=== PATIENT | female | born 1995 | race Hispanic/Latino ===

== ENCOUNTER 2017-03-28 17:27 | Emergency (ER) | payer MEDICAID, OTHER ==
[~2017-03-28 17:27] MED LIST: PROP20TA7 PO
== END 2017-03-28 17:54 | disposition home or self-care (01) ==
LOC: EDH 17:27
DX: R50.9 Fever, unspecified (principal); F50.89 Other specified eating disorder; R53.1 Weakness; R00.2 Palpitations; E07.9 Disorder of thyroid, unspecified
CPT/HCPCS: 99281

== ENCOUNTER 2017-04-12 23:27 | Emergency (ER) | payer MEDICAID, OTHER ==
[2017-04-13] MEDS ORDERED: SODIUM CHLORIDE 0.9% 1000ML 1,000 ML IV ONE (00:16)
[2017-04-13 00:24] LABS: BASOPHILS % (AUTO) 0.4 % (0.0-5.0); HEMATOCRIT 37.2 % (36-48); LYMPHOCYTES % (AUTO) 21.6 % (21.0-51.0); MEAN CORPUSCULAR HEMOGLOBIN 30.4 pg (27.0-33.0); MEAN CORPUSCULAR HGB CONC 34.9 g/dL (32.0-36.0); MEAN CORPUSCULAR VOLUME 87.1 fL (79-99); MONOCYTES % (AUTO) 9.3 % (3.0-13.0); NEUTROPHILS % (AUTO) 67.7 % (40.0-77.0); PLATELET COUNT (AUTO) 291 K/uL (130-400); RED BLOOD CELL COUNT(AUTO) 4.28 MIL/uL (4.00-5.50); RED CELL DISTRIBUTION WIDTH 12.5 % (11.0-15.5); WHITE BLOOD COUNT (AUTO) 8.8 K/uL (4.8-10.8)
[2017-04-13 00:34] LABS: CREATININE 0.4 mg/dL (0.5-1.5); POTASSIUM 3.4 mmol/L (3.5-5.1)
[2017-04-13 00:48] LABS: B-TYPE NATRIURETIC PEPTIDE 20 pg/mL (0-100)
[2017-04-13 01:03] LABS: ALBUMIN 3.6 g/dL (3.5-5.0); BILIRUBIN,DIRECT 0.1 mg/dL (0.0-0.3); BILIRUBIN,TOTAL 0.6 mg/dL (0.2-1.0); THYROID STIMULATING HORMONE 0.02 uIU/mL (0.36-3.74); TOTAL PROTEIN, SERUM 7.2 g/dL (6.0-8.3)
[2017-04-13] MEDS ORDERED: LIDOCAINE HCL-MPF 1% 2ML VIAL ONE (01:14)
[2017-04-13] MEDS ORDERED: CEFTRIAXONE SODIUM 1 GM ONE (01:14)
[2017-04-13] MEDS ORDERED: DIPHENHYDRAMINE HCL 25 MG CAPSULE ONE (01:14)
== END 2017-04-13 02:19 | disposition home or self-care (01) ==
LOC: EDH 23:27
DX: O26.891 Other specified pregnancy related conditions, first trimester (principal); R00.2 Palpitations; Z79.899 Other long term (current) drug therapy; Z3A.08 8 weeks gestation of pregnancy
CPT/HCPCS: 36415; 80048; 80076; 83880; 84443; 84484; 84702; 85025; 93005; 96360; 96361; 99285; J0696; J3490; J7030; Q0163

== ENCOUNTER 2018-12-07 08:08 | Emergency (ER) | payer MEDICAID ==
[2018-12-07] MEDS ORDERED: ACETAMINOPHEN EXTRA STRENGTH 500 MG TABLET ONE (08:26)
[2018-12-07] MEDS ORDERED: ACETAMINOPHEN 325 MG TAB ONE (08:33)
[2018-12-07 08:44] LABS: RAPID GROUP A STREP NEGATIVE (NEGATIVE)
== END 2018-12-07 09:19 | disposition home or self-care (01) ==
LOC: EDH 08:08
DX: O99.512 Diseases of the respiratory system complicating pregnancy, second trimester (principal); J06.9 Acute upper respiratory infection, unspecified; E07.9 Disorder of thyroid, unspecified; Z3A.17 17 weeks gestation of pregnancy
CPT/HCPCS: 87804; 87880

== ENCOUNTER → 2022-11-26 | Outpatient (CLI) | payer MEDICAID | END | disposition home or self-care (01) | LOC: SHCH 13:53 | PROVIDERS: ATTEND Internal Medicine Cardiovascular Disease | DX: I33.9 Acute and subacute endocarditis, unspecified (principal) | CPT/HCPCS: 93306 ==